=== PATIENT | female | born 1980 | race Two or more races ===

== ENCOUNTER 2025-11-01 12:08 | Outpatient (CLI) | payer BC, SELFPAY ==
--- NOTE | 2025-11-01 12:15 | CRLHL7_ITS ---
For Patients: As a result of the Century Cures Act, medical imaging exams and procedure reports are released immediately into your electronic medical record. You may view this report before your referring provider. If you have questions, please contact your health care provider. INDICATION: Postmenopausal bleeding COMPARISON: None. TECHNIQUE: 2D truong-scale and color Doppler images were acquired of the pelvis using a transabdominal and transvaginal approach. Transvaginal imaging performed to better visualize the endometrial stripe and ovaries. FINDINGS: Sonographic images demonstrate a normal size and smooth outer contour of the uterus. Uterus measures 7.3 cm in length by 3.5 cm in AP diameter by 5.1 cm in transverse dimension. The myometrium has a heterogeneous echotexture. The endometrial lining measures 6.4 mm in composite thickness. The right ovary is not visualized due to bowel gas and the left ovary measures 1.5 x 0.9 x 1.5 cm. The left ovary demonstrates normal arterial and venous blood flow on color Doppler analysis. There are no suspicious fluid collections within the cul-de-sac. IMPRESSION: Endometrial thickness 6.4 millimeters. No endometrial fluid. No fibroid. Dictated by Fermin Boudreaux MD @ 11/01/2025 3:01:04 PM (Electronically Signed)
== END 2025-11-01 12:09 | disposition home or self-care (01) ==
LOC: US 12:08
PROVIDERS: Visit Provider Physician Assistant
DX: N95.0 Postmenopausal bleeding (principal)
CPT/HCPCS: 76830; 76856; T1013